=== PATIENT | male | born 1945 | race Caucasian/White ===

== ENCOUNTER → 2016-08-02 | Outpatient (CLI) | payer MEDICARE, OTHER | LOC: RAD 12:23 | DX: M25.511 Pain in right shoulder (principal); M75.81 Other shoulder lesions, right shoulder | CPT/HCPCS: 73030 ==

== ENCOUNTER → 2020-11-15 | Outpatient (CLI) | payer MEDICARE, OTHER ==
[~2020-11-15] MED LIST: ASPIR-LOW81 MG PO; CELEBREX200 MG PO; COLACE 100MG C100 MG PO; DITROPAN XL5 MG PO; FISH OIL 1,0001 EAC4 PO; FLAGYL500 MG PO; FLOMAX0.4 MG PO; GLUCOPHAGE500 MG PO; METOPROLOL TART50 MG PO; PROSCAR 5 MG TAB5 MG PO; SEROQUEL100 MG PO; SIMVASTATIN20 MG PO; SYNTHROID200 MCG PO; VITAMIN B-122500 MCG SL; ZANTAC 150 MG150 MG PO; ZESTRIL10 MG PO
== END ==
LOC: SLEEP-COR 10:07
DX: G47.33 Obstructive sleep apnea (adult) (pediatric) (principal)
CPT/HCPCS: 95811